=== PATIENT | female | born 1995 | race Caucasian/White ===

== ENCOUNTER 2019-05-15 19:12 | Emergency (ER) | payer OTHER ==
--- NOTE | 2019-05-15 19:15 | ER Report ---
History and Physical Time Seen By MD: 19:12 HPI/ROS CHIEF COMPLAINT: Right great toe nail avulsion HISTORY OF PRESENT ILLNESS: 23-year-old female, type I diabetic presents ambulatory to the ER with the avulsion of her right great toenail. Patient states her great aunt was biting on her toe. She went to brush it off with her heel when she ripped her nail up. She has a history of ingrown toenails. She has artificial nails on top of her nails since they look so abnormal. Patient has bleeding from under the nail. She has moderate pain. She notes a poking sensation in the right lateral aspect of the nail. Patient's tetanus status is up-to-date. Allergies: Coded Allergies: Penicillins (Verified Allergy, Intermediate, 'HIVES', 05/15/19) Home Meds Reported Medications [Oral Control] No Conflict Check 05/15/19 Insulin Detemir 100 UN/ML PEN (Levemir Flextouch) 100 Unit/1 Ml Insuln.pen, 16 UNITS SUBQ BID 05/15/19 Insulin Lispro 200 UN/ML PEN (Humalog Kwikpen) 200 Unit/1 Ml Insuln.pen 05/15/19 Discontinued Reported Medications Insulin Detemir 100 UN/ML PEN (Levemir Flextouch) 100 Unit/1 Ml Insuln.pen, 16 UNITS ID BID 05/15/19 Reviewed Nurses Notes: Yes Old Medical Records Reviewed: Yes Constitutional Vital Sign - Last 24 Hours 05/15/19 05/15/19 05/15/19 05/15/19 19:13 19:18 19:27 19:30 Temp 99.1 Pulse 100 89 Resp 16 B/P (MAP) 150/89 (109) 150/89 110/67 (81) Pulse Ox 96 96 O2 Delivery Room Air 05/15/19 05/15/19 05/15/19 19:42 19:57 20:00 Pulse 83 85 B/P (MAP) 111/89 (96) Pulse Ox 96 94 Physical Exam General appearance: Alert no distress. Respiratory: Chest is non tender, lungs are clear to auscultation. Cardiac: Regular rate and rhythm Extremities: Examination of the right foot reveals an avulsion of the right great toenail. DIFFERENTIAL DIAGNOSIS: After history and physical exam differential diagnosis was considered for toenail avulsion Medical Decision Making ED Course/Re-evaluation ED Course ED procedure: Toenail removal A digital block was performed with lidocaine 2%. The toe was prepped with Betadine. The nail was lifted from the bed. Most of it at a alliance party been avulsed up. The distal 75% of the nail was excised. The nail root was left intact. Patient's advised daily wound care. He is advised to keep it covered with Band- Aid for several months. Patient's cautioned to watch for signs of infection. Decision to Disposition Date: May 15, 2019 Decision to Disposition Time: 19:50 Depart Departure Latest Vital Signs Vital Signs Date Time Temp Pulse Resp B/P (MAP) Pulse Ox O2 Delivery O2 Flow Rate FiO2 05/15/19 20:00 111/89 (96) 05/15/19 19:57 85 94 05/15/19 19:18 99.1 16 Room Air Impression: Primary Impression: Avulsion of toenail of right foot Condition: Improved Disposition: HOME OR SELF-CARE Patient Instructions: Nail Avulsion (ED) Additional Instructions: Perform daily wound care Apply anabolic ointment to the area and cover with a large Band-Aid Wear a Band-Aid for several months to protect the nail bed. ALIZA PITTS DO May 15, 2019 19:15
[2019-05-15] MEDS ORDERED: INSU200I (19:24)
[2019-05-15] MEDS ORDERED: INSU100I5 ID (19:24)
[2019-05-15] MEDS ORDERED: INSU100I5 SUBQ (19:25)
[2019-05-15] MEDS ORDERED: ORAL BIRTH CONTROL (19:25)
[2019-05-15] MEDS ORDERED: DIPHTH/TETANUS/ACEL. PERTUSSIS IM ONLY ONE (19:35)
[2019-05-15 20:00] VITALS: BP 111/89
== END 2019-05-15 20:16 | disposition home or self-care (01) ==
LOC: ER 19:29
DX: S91.201A Unspecified open wound of right great toe with damage to nail, initial encounter (principal)
CPT/HCPCS: 90471; 90715; 99283